=== PATIENT | male | born 1955 | race Caucasian/White ===

== ENCOUNTER → 2021-05-31 | Outpatient (CLI) | payer OTHER ==
[~2021-05-31] MED LIST: ASPIRIN81 M2 PO; B-1100 MG PO; GEMFIBROZIL 60600 MG PO; LIPITOR40 MG PO; NEURONTIN600 MG PO; NEXIUM40 MG PO; NORVASC5 MG PO; TOPROL XL25 MG PO; VITAMIN D1000 UNI1 PO
--- NOTE | 2021-05-31 17:36 | CARDNUC ---
[place] [address] CARDIAC NUCLEAR IMAGING REPORT Name: GAEL HARLEY JR Room: [facility]#: [id number] Admission: 05/31/21 Attend Phys: Jean Penny, Discharge: Date of : 53 Date of Service: 05/31/21 1735 Report #: [id number] THIS REPORT FOR: cc: Skyler Diaz Vincent R. DO [place],Jean Day MD [facility] ~ APPROVED REPORT Imaging Protocol: Stress Tc-99m/Rest Tc-99m 1 day Study performed: 05/31/2021 09:15:00 Indication: Chest pain Patient Location: Out-Patient Stress Nurse: Jessie Ward RN Ht: 6 ft 0 in Wt: 195 lbs BSA: 2.11 m2 BMI: 26.44 Medical History Medical History: HTN, Hyperlipidemia Medications: ASA-81, ATORVASTATIN, FENOFIBRATE, METOPROLOL Cardiac Risk Factors: Age, FHX of CAD, HTN, Hyperlipidemia, Tobacco History (Former) Exercise History: Indeterminate Meds Held (24 hrs): METOPROLOL Resting Data Rest SPECT myocardial perfusion imaging was performed in supine position 30 minutes following the intravenous injection of 10.0 mCi of Tc-99m Sestamibi. Time of rest injection: 10:20 The images were gated to evaluate regional wall motion and calculate left ventricular ejection fraction. Administration Route: IV Administration Site: Left AC Pharmacologic Stress Pharmacologic stress test was performed by injecting Regadenoson 0.4 mg IV push over 10-15 seconds immediately followed by the intravenous injection of 31.7 mCi of Tc-99m Sestamibi. Time of stress injection: 11:35 Administration Route: IV Administration Site: Left AC Heart Rate at time of stress injection: [place] [address] CARDIAC NUCLEAR IMAGING REPORT Name: GAEL HARLEY JR Room: [facility] Zo#: [id number] Admission: 05/31/21 Attend Phys: Jean Penny, Discharge: Date of : 53 Date of Service: 05/31/21 1735 Report #: [id number] Gated Stress SPECT was performed 40 minutes after stress injection. The images were gated to evaluate regional wall motion and calculate left ventricular ejection fraction. Prone imaging was performed. Stress Test Details Stress Test: Pharmacologic stress testing performed using 0.4 mg of regadenoson per 5 mL given IV over 10 seconds. Reason for pharmacologic stress test: physical limitation. HR Max Heart Rate (APMHR): 154 bpm Resting HR: 66 bpm Target HR (85% APMHR): 130 bpm Max HR Achieved: 75 bpm % of APMHR: 48 Recovery HR: 74 bpm BP Resting BP: 142/88 mmHg Max BP: 142/95 mmHg Recovery BP: 142/80 mmHg ECG Resting ECG: Sinus Rhythm Stress ECG: Sinus Rhythm ST Change: None Arrhythmia: None Recovery ECG: Sinus Rhythm Recovery ST Change: None Recovery Arrhythmia: None Clinical Reason for Termination: Completed protocol The patient tolerated Lexiscan infusion without significant cardiac symptoms. Nurse Comments PT CANNOT WALK ON TREADMILL HAS ONE LEG LONGER THAT THE OTHER SP HIP SURGERY Stress ECG Conclusion The baseline twelve-lead EKG shows sinus rhythm with some nonspecific T wave flattening and inversion but no significant ST segment abnormalities. EKGs obtained during and post Lexiscan infusion show sinus rhythm with no significant ST segment changes when compared to baseline. There were [place] [address] CARDIAC NUCLEAR IMAGING REPORT Name: GAEL HARLEY Room: [facility]#: [id number] Admission: 05/31/21 Attend Phys: Jean Penny, Discharge: Date of : 53 Date of Service: 05/31/21 1735 Report #: [id number] Study Quality Study: Good Artifact: Mild Diaphragmatic artifact Study Data At rest, the left ventricular ejection fraction was 55%.. Post stress, the left ventricular ejection was 68%.. TID = 0.86. Perfusion Perfusion images obtained in the supine position at rest and post Lexiscan stress show a moderate region of photopenia involving the inferior wall that resolves completely with post-rest prone imaging suggesting diaphragmatic attenuation artifact. Post-rest prone images show uniform uptake of the radioisotope throughout the myocardium. Wall Motion Normal left ventricular wall motion. Nuclear Conclusion ECG Findings: negative for ischemia Clinical Findings: negative for ischemia Nuclear Findings: negative for ischemia Exercise Capacity: not assessed Left Ventricular Function: normal Risk Study: low Perfusion images show no defect to suggest infarct or ischemia. Left ventricular systolic function appears normal on gated studies. This is a low risk study. <Conclusion> The baseline twelve-lead EKG shows sinus rhythm with some nonspecific T wave flattening and inversion but no significant ST segment abnormalities. EKGs obtained during and post Lexiscan infusion show sinus rhythm with no significant ST segment changes when compared to baseline. There were no stress-induced arrhythmias. <ELECTRONICALLY SIGNED> By: Jean Penny MD, FACC 05/31/21 1735 1735 1735 Jean Penny MD, FACC /INF
== END ==
LOC: M.NUC 05-08 09:04 → M.CRD 09:00 → M.NUC 09:10
PROVIDERS: ATTEND Internal Medicine Cardiovascular Disease
DX: R07.2 Precordial pain (principal)